=== PATIENT | male | born 1975 | race Caucasian/White ===

== ENCOUNTER 2022-09-16 09:25 | Inpatient (IN) | payer SELFPAY ==
[~2022-09-16] VITALS: Ht 172.7 cm; Wt 80.0 kg
[2022-09-16] MEDS ORDERED: PANTOPRAZOLE SODIUM 40 MG/VIAL IV STA (09:32)
[2022-09-16] MEDS ORDERED: OCTREOTIDE ACETATE 50 MCG/ML 1ML IV ONE (09:45)
[2022-09-16 10:39] LABS: CHLORIDE 100 mEq/L (98-107)
[2022-09-16 10:40] LABS: HEMATOCRIT. 23.6 % (42.0-52.0); HEMOGLOBIN. 8.1 g/dL (14.0-18.0); MEAN CORPUSCULAR HEMOGLOBIN 35.6 pg (28.0-32.0); MEAN CORPUSCULAR VOLUME 103.8 fL (80.0-94.0); MEAN PLATELET VOLUME 9.9 fl (7.4-10.4); RED BLOOD CELL COUNT 2.27 mill/uL (4.7-6.1); RED CELL DISTRIBUTION WIDTH 14.2 % (11.6-14.6)
[2022-09-16 10:42] LABS: ETHANOL BLOOD 296 mg/dL
[2022-09-16] MEDS ORDERED: NOREPINEPHRINE 8MG/250ML PMX 250 ML IV STA (10:57)
[2022-09-16] MEDS ORDERED: SODIUM CHLORIDE 0.9% 1000ML BAG (SEPSIS BOLUS) IV ONE (11:00)
[2022-09-16 11:01] LABS: PLATELET ESTIMATE MARKEDLY DECREASED
[2022-09-16 11:02] LABS: PLATELET 34 x1000/uL (130-400)
[2022-09-16] MEDS ORDERED: NOREPINEPHRINE 8 MG in DEXTROSE 5% WATER 250 ML IV PRN (11:15)
[2022-09-16 11:21] LABS: INR 1.7; PROTHROMBIN TIME 17.2 sec (9.6-11.0)
[2022-09-16] MEDS ORDERED: FENTANYL CITRATE/PF 50MCG/ML 2ML VIAL IV ONE (12:00)
[2022-09-16] MEDS ORDERED: SUCCINYLCHOLINE CHLORIDE 200MG/10ML IV ONE (12:00)
[2022-09-16] MEDS ORDERED: FENTANYL 2500MCG/250ML PMX 250 ML IV ONE (12:00)
[2022-09-16] MEDS ORDERED: MIDAZOLAM HCL 100 MG in DEXT 5% WATER 80 ML IV ONE (12:00)
[2022-09-16] MEDS ORDERED: VASOPRESSIN 20 UNIT in SODIUM CHLORIDE 0.9% 99 ML STA (12:02)
[2022-09-16] MEDS ORDERED: ONDANSETRON HCL 4MG/2ML INJ IV STA (12:08)
[2022-09-16] MEDS ORDERED: FENTANYL 2500MCG/250ML PMX 250 ML IV PRN (12:15)
[2022-09-16 12:26] LABS: BG BASE EXCESS -10.4 mmol/L (-2.0-2.0); BG CARBOXYHEMOGLOBIN 1.2 % (0.5-1.5); BG DEOXYHEMOGLOBIN 2.3 % (0.0-5.0); BG FRACTION INSPIRED OXYGEN 21; BG HCO3 ACT 15.6 mmol/L (22.0-26.0); BG METHEMOGLOBIN 0.7 % (0.0-1.5); BG OXYGEN SATURATION 97.7 % (92.0-98.5); BG OXYHEMOGLOBIN 95.8 % (94.0-97.0); BG PCO2 34.8 mmHg (35.0-45.0); BG PO2 127.8 mmHg (75.0-100.0); BG SAMPLE SITE LEFT BRACHIAL; BG TOTAL HEMOGLOBIN 6.7 g/dL (12.0-18.0); BG VENT MODE ROOM AIR
[2022-09-16] MEDS ORDERED: MIDAZOLAM HCL 100 MG in SODIUM CHLORIDE 0.9% 100 ML IV PRN (12:30)
[2022-09-16] MEDS: VASOPRESSIN 20 UNITS in SODIUM CHLORIDE 0.9% 100 ML IV PRN ×2 (12:33→12:57)
[2022-09-16] MEDS ORDERED: EPINEPHRINE 5 MG in SODIUM CHLORIDE 0.9% 245 ML IV STA (12:37)
[2022-09-16 12:38] LABS: MEAN CORPUSCULAR HEMOGLOBIN 34.6 pg (28.0-32.0); MEAN CORPUSCULAR VOLUME 103.3 fL (80.0-94.0); MEAN PLATELET VOLUME 9.8 fl (7.4-10.4); RED BLOOD CELL COUNT 1.76 mill/uL (4.7-6.1); RED CELL DISTRIBUTION WIDTH 16.1 % (11.6-14.6)
[2022-09-16 12:40] LABS: HEMATOCRIT. 18.2 % (42.0-52.0); HEMOGLOBIN. 6.1 g/dL (14.0-18.0)
[2022-09-16] MEDS ORDERED: EPINEPHRINE 5 MG in SODIUM CHLORIDE 0.9% 245 ML IV PRN (12:45)
[2022-09-16] MEDS ORDERED: TRANEXAMIC ACID 1,000 MG/10 ML IV ONE (12:45)
[2022-09-16] MEDS ORDERED: CLONIDINE 0.1MG TABLET PO PRN (12:45)
[2022-09-16] MEDS ORDERED: ACETAMINOPHEN 325MG TABLET PO PRN (12:45)
[2022-09-16] MEDS ORDERED: ONDANSETRON HCL 4MG/2ML INJ IV PRN (12:45)
[2022-09-16] MEDS ORDERED: IPRATROPIUM/ALBUTEROL 0.5-3(2.5)MG/3ML NEB HHN PRN (12:45)
[2022-09-16] MEDS ORDERED: DIPHENHYDRAMINE 50MG/ML VIAL IV PRN (12:45)
[2022-09-16] MEDS ORDERED: DEXT 5%/0.9% NACL 1,000 ML IV SCH (13:00)
[2022-09-16 13:10] LABS: PLATELET 27 x1000/uL (130-400); PLATELET ESTIMATE MARKEDLY DECREASED
[2022-09-16] MEDS ORDERED: DOPAMINE 400MG/250ML PREMIX 250 ML IV ONE (14:15)
[2022-09-16] MEDS ORDERED: OCTREOTIDE 1,000 MCG in SODIUM CHLORIDE 0.9% 100 ML IV STA (14:45)
[2022-09-16] MEDS ORDERED: OCTREOTIDE 1,000 MCG in SODIUM CHLORIDE 0.9% 98 ML IV SCH ×2 (15:00→15:15)
[2022-09-16] MEDS ORDERED: LACTULOSE 20G/30ML UDC PO PRN (15:15)
[2022-09-16] MEDS ORDERED: PHENYLEPHRINE 50 MG in DEXT 5% WATER 245 ML IV ONE (15:30)
[2022-09-16] MEDS ORDERED: PHENYLEPHRINE 100 MG in DEXT 5% WATER 240 ML IV NR (16:15)
[2022-09-16] MEDS ORDERED: PANTOPRAZOLE SODIUM 40 MG/VIAL IV SCH (17:00)
[2022-09-16 19:37] LABS: HEMATOCRIT 28.9 % (42.0-52.0); HEMOGLOBIN 8.1 g/dL (14.0-18.0)
[2022-09-16 20:48] VITALS: BP 33/16
[2022-09-16] MEDS ORDERED: CHLORDIAZEPOXIDE 25MG CAPSULE PO SCH (22:00)
== END 2022-09-16 22:38 | DRG 133 ==
LOC: ER 09:30 → MICUSO 11:09
PROVIDERS: ADMIT Internal Medicine; ATTEND Internal Medicine
PROC: 30233K1 Transfusion of Nonautologous Frozen Plasma into Peripheral Vein, Percutaneous Approach (ICD-10-PCS; principal; 2022-09-16)
PROC: 30233N1 Transfusion of Nonautologous Red Blood Cells into Peripheral Vein, Percutaneous Approach (ICD-10-PCS; 2022-09-16)
DX: J96.00 Acute respiratory failure, unspecified whether with hypoxia or hypercapnia (principal); R57.1 Hypovolemic shock; I85.11 Secondary esophageal varices with bleeding; E43 Unspecified severe protein-calorie malnutrition; K85.90 Acute pancreatitis without necrosis or infection, unspecified; R57.8 Other shock; K74.60 Unspecified cirrhosis of liver; D53.9 Nutritional anemia, unspecified; F10.229 Alcohol dependence with intoxication, unspecified; Y90.8 Blood alcohol level of 240 mg/100 ml or more; F41.9 Anxiety disorder, unspecified; E11.65 Type 2 diabetes mellitus with hyperglycemia; Z79.899 Other long term (current) drug therapy
CPT/HCPCS: 31500; 36415; 36600; 71045; 76700; 80053; 80320; 82375; 82805; 85014; 85018; 85025; 86850; 86900; 86920; 86927; 93970; 94002; 99291; C9113; J1265; J2250; J2354; J2370; J3010; J3490; J7030; J7050; J7060; P9016; P9017; G0480